=== PATIENT | female | born 1950 | race Caucasian/White ===

== ENCOUNTER 2023-12-20 08:00 | Outpatient (CLI) | payer MEDICARE | END 2023-12-20 23:59 | disposition home or self-care (01) | LOC: LAB.N 08:00 | PROVIDERS: ATTEND Registered Nurse | DX: R82.79 Other abnormal findings on microbiological examination of urine (principal); R30.0 Dysuria | CPT/HCPCS: 87086 ==

== ENCOUNTER 2023-12-27 08:00 | Outpatient (CLI) | payer MEDICARE ==
--- NOTE | 2023-12-27 16:38 | XRAY Report ---
PROCEDURE: Wrist 3+V RT INDICATIONS: UNSPECIFIED FRACTURE OF RIGHT WRIST TECHNIQUE: 3 views of the wrist were acquired. COMPARISON: None. FINDINGS: Bones: The bones are osteopenic. Comminuted, impacted, displaced distal radius fracture extending to the articular surface with dorsal angulation of the major distal fragment. No suspicious bony lesion s. Soft tissues: No suspicious soft tissue calcifications or masses. Extensive soft tissue swelling IMPRESSION: Comminuted, impacted displaced distal radius fracture extending to the articular surface with dorsal angulation of the major distal fragment as well as extensive soft tissue swelling. Reviewed by: Laron Le MD on 12/27/2023 4:37 PM PDT Approved by: Laron Le MD on 12/27/2023 4:37 PM PDT Station ID: [id number]
--- NOTE | 2023-12-27 18:17 | XRAY Report ---
PROCEDURE: Wrist 1-2V RT INDICATIONS: FRACTURE OF RIGHT WRIST TECHNIQUE: 2 views of the wrist were acquired. COMPARISON: Wrist radiographs 12/27/2023. FINDINGS: Bones: Casting material obscures fine bony detail. Improved alignment of the distal radius fracture post casting. No suspicious bony lesions. Bones appear osteopenic. Soft tissues: No suspicious soft tissue calcifications. IMPRESSION: Improved alignment of the distal radius fracture post casting. Reviewed by: Ifeanyi Anaya MD on 12/27/2023 6:15 PM PDT Approved by: Ifeanyi Anaya MD on 12/27/2023 6:15 PM PDT Station ID: [id number]
== END 2023-12-27 23:59 | disposition home or self-care (01) ==
LOC: DI.S 08:00
PROVIDERS: ATTEND Emergency Medicine
DX: S52.501A Unspecified fracture of the lower end of right radius, initial encounter for closed fracture (principal)

== ENCOUNTER 2024-01-03 09:15 | Outpatient (CLI) | payer MEDICARE ==
--- NOTE | 2024-01-03 15:02 | XRAY Report ---
PROCEDURE: Wrist 3 View RT INDICATIONS: RIGHT WRIST FRACTURE TECHNIQUE: 3 views of the wrist were acquired. COMPARISON: 12/27/2023 FINDINGS: Bones: Cast material somewhat obscures bony detail. Comminuted impacted mildly displaced distal radi us fracture extending to the articular surface, as before, with improved angulation of the major dist al fragment. Soft tissues: No suspicious soft tissue calcifications or masses. IMPRESSION: Impacted displaced distal radius fracture extending to the articular surface. Alignment improved from the initial prereduction images. Reviewed by: Laron Le MD on 01/03/2024 3:01 PM PDT Approved by: Laron Le MD on 01/03/2024 3:01 PM PDT Station ID: [id number]
== END 2024-01-03 23:59 | disposition home or self-care (01) ==
LOC: DI.WOS 09:15
PROVIDERS: ATTEND Orthopaedic Surgery
DX: S52.591A Other fractures of lower end of right radius, initial encounter for closed fracture (principal)

== ENCOUNTER 2024-01-09 11:25 | Outpatient (CLI) | payer MEDICARE ==
--- NOTE | 2024-01-09 15:56 | XRAY Report ---
PROCEDURE: Wrist 3 View RT INDICATIONS: RIGHT WRIST FRACTURE TECHNIQUE: 3 views of the wrist were acquired. COMPARISON: X-ray wrist 01/03/2024, L4 to 24. FINDINGS: Bones: Unchanged appearance of impacted and mildly displaced comminuted distal radial fracture with intra-articular extension. Alignment is stable. Soft tissues: No suspicious soft tissue calcifications or masses. IMPRESSION: Stable alignment of intra-articular distal radial fracture. Reviewed by: Luci Guardado MD on 01/09/2024 3:54 PM PDT Approved by: Luci Guardado MD on 01/09/2024 3:54 PM PDT Station ID: [id number]
== END 2024-01-09 23:59 | disposition home or self-care (01) ==
LOC: DI.WOS 11:25
PROVIDERS: ATTEND Orthopaedic Surgery
DX: S52.531A Colles' fracture of right radius, initial encounter for closed fracture (principal)

== ENCOUNTER 2024-01-23 10:34 | Outpatient (CLI) | payer MEDICARE ==
--- NOTE | 2024-01-23 11:21 | XRAY Report ---
PROCEDURE: Wrist 3+V RT INDICATIONS: COLLES' FRACTURE OF RIGHT RADIUS TECHNIQUE: 3 views of the wrist were acquired. COMPARISON: 12/27/2023, 01/09/2024 FINDINGS: Bones: Continued interval healing of the distal radial metadiaphysis fracture. No large intra-articu lar cortical step off. Stable alignment. Soft tissues: No suspicious soft tissue calcifications or masses. IMPRESSION: Stable alignment with continued healing of the distal radial fracture. Reviewed by: Manoj Lam MD on 01/23/2024 11:20 AM PDT Approved by: Manoj Lam MD on 01/23/2024 11:20 AM PDT Station ID: [id number]
== END 2024-01-23 10:35 | disposition home or self-care (01) ==
LOC: DI 10:34
PROVIDERS: ATTEND Orthopaedic Surgery
DX: S52.531D Colles' fracture of right radius, subsequent encounter for closed fracture with routine healing (principal)

== ENCOUNTER 2024-03-12 08:00 | Outpatient (CLI) | payer MEDICARE | END 2024-03-12 23:59 | disposition home or self-care (01) | LOC: LAB.N 08:00 | PROVIDERS: ATTEND Physician Assistant | DX: R30.0 Dysuria (principal) | CPT/HCPCS: 87086; 87181 ==

== ENCOUNTER 2024-03-26 07:00 | Outpatient (CLI) | payer MEDICARE | END 2024-03-26 23:59 | disposition home or self-care (01) | LOC: LAB.S 07:00 | PROVIDERS: ATTEND Registered Nurse | DX: R82.79 Other abnormal findings on microbiological examination of urine (principal); R30.0 Dysuria | CPT/HCPCS: 87086; 87181 ==

== ENCOUNTER 2024-05-03 08:00 | Outpatient (CLI) | payer MEDICARE | END 2024-05-03 23:59 | disposition home or self-care (01) | LOC: LAB.S 08:00 | PROVIDERS: ATTEND Registered Nurse | DX: R82.79 Other abnormal findings on microbiological examination of urine (principal); R30.0 Dysuria | CPT/HCPCS: 87077; 87086; 87181 ==